=== PATIENT | female | born 1975 | race African-American/Black ===

== ENCOUNTER 2019-02-17 10:58 | Observation (INO) ==
[2019-02-17] MEDS ORDERED: SODIUM CHLORIDE 0.9% 2,000 ML IV STA (12:28)
[2019-02-17 12:34] LABS: Basophils % 0.1 % (0.0-0.8); Hematocrit 36.3 VOL% (35.7-47.0); Hemoglobin 10.8 GM/DL (12.0-16.0); Immature Granulocytes % 0.4 %; Immature Granulocytes Absolute 0.03 #; Lymphocytes # 0.8 10*3/uL (1.4-4.0); Mean Corpuscular HGB Conc 29.8 GM/DL (32-36); Mean Corpuscular Volume 77.6 FL (87-102); Mean Platelet Volume 9.9 FL (9.6-12.0); Monocytes % 1.6 % (1.7-12.7); Neutrophils % 85.9 % (38.7-73.9); Platelet Count 584 T/CUMM (130-400); Red Blood Count 4.68 MC/CUMM (3.8-5.5); Red Cell Distribution Width 14.8 % (9.3-17.3); White Blood Count 6.9 T/CUMM (4-12)
[2019-02-17 12:45] LABS: Apearance,Urine CLEAR (Clear); Bacteria,Urine Occasional /HPF (Few); Bilirubin,Urine Negative (Negative); Blood, Urine Negative (Negative); Glucose,Urine (UA) >=500 mg/dL (Negative); Ketones,Urine 80 mg/dL (Negative); Mucus,Urine Occasional /LPF (Occasional); Nitrite,Urine Negative (Negative); Protein,Urine Negative; RBC,Urine 2 /HPF (0-4); Squamous Epithelial Cell,Urine Occasional /HPF (0-10); Urine Color Straw (Yellow); Urine Specific Gravity 1.025 (1.001-1.035); Urine Urobilinogen < 2.0 EU/DL (0.2-1.0); WBC,Urine 1 /HPF (0-6)
[2019-02-17 12:46] LABS: Bilirubin,Total 0.4 MG/DL (0.2-1.0); Calcium 9.5 MG/DL (8.5-10.1); Osmolality,Calculated 284.8 MOS/KG (273-304); Total Protein 7.8 G/DL (6.4-8.3)
[2019-02-17 13:22] LABS: Barbiturates Screen,Urine Negative (Negative); Benzodiazepines Screen,Urine Negative (Negative); Cannabinoid Screen,Urine Negative (Negative); Opiate Screen,Urine Negative (Negative); Phencyclidine Screen,Urine Negative (Negative)
[2019-02-17] MEDS ORDERED: KETOROLAC 30 MG/1 ML VIAL IV STA (14:27)
[2019-02-17] MEDS ORDERED: ONDANSETRON 4 MG/2 ML VIAL ONE (15:06)
[2019-02-17] MEDS ORDERED: ONDANSETRON 4 MG/2 ML VIAL IV STA (15:20)
[2019-02-17] MEDS ORDERED: ACETAMINOPHEN 325 MG TABLET PO PRN (15:57)
[2019-02-17] MEDS ORDERED: PROMETHAZINE 25 MG TABLET PO PRN (15:57)
[2019-02-17] MEDS ORDERED: PROMETHAZINE 25 MG/1 ML VIAL IM PRN (15:57)
[2019-02-17] MEDS ORDERED: DEXTROSE 50% 25 GM/50 ML SYRINGE IV PRN (15:57)
[2019-02-17] MEDS ORDERED: diphenhydrAMINE CAP 25 MG CAPSULE PO PRN (15:57)
[2019-02-17] MEDS ORDERED: GLUCAGON 1 MG VIAL IM PRN (15:57)
[2019-02-17] MEDS ORDERED: ALUM/MAG/SIMETH/LIDO VISC 1:1 30 ML BOTTLE PO STA (16:20)
[2019-02-17] MEDS ORDERED: DEXTROSE 50% 25 GM/50 ML VIAL IV PRN (16:22)
[2019-02-17] MEDS: SODIUM CHLORIDE 0.9% 1,000 ML IV SCH ×2 (18:23→23:28)
[2019-02-17] MEDS: LISINOPRIL 10 MG TABLET PO SCH (18:25)
[2019-02-17] MEDS: PANTOPRAZOLE 40 MG TABLET PO SCH (18:25)
[2019-02-17] MEDS: ENOXAPARIN 40 MG/0.4 ML SYRINGE SUBCUT SCH (18:26)
[2019-02-17] MEDS: INSULIN REGULAR 100 UNIT/ML SUBCUT SCH ×2 (18:27→21:03)
[2019-02-17] MEDS: metFORMIN 500 MG TABLET PO SCH (21:03)
[2019-02-18] MEDS: SODIUM CHLORIDE 0.9% 1,000 ML IV SCH ×4 (04:38→23:09)
[2019-02-18 05:07] LABS: Calcium 7.6 MG/DL (8.5-10.1); Osmolality,Calculated 281.1 MOS/KG (273-304)
[2019-02-18] MEDS: INSULIN REGULAR 100 UNIT/ML SUBCUT SCH ×4 (08:04→20:36)
[2019-02-18] MEDS: PANTOPRAZOLE 40 MG TABLET PO SCH (08:43)
[2019-02-18] MEDS: LISINOPRIL 10 MG TABLET PO SCH (08:43)
[2019-02-18] MEDS: metFORMIN 500 MG TABLET PO SCH ×2 (08:43→20:28)
[2019-02-18] MEDS: ONDANSETRON 4 MG/2 ML VIAL IV PRN ×2 (09:59→16:46)
[2019-02-18] MEDS ORDERED: POTASSIUM CHLORIDE 20 MEQ TABLET PO ONE (10:04)
[2019-02-18] MEDS ORDERED: NITROGLYCERIN SL 0.4 MG TABLET SL PRN (10:11)
[2019-02-18] MEDS ORDERED: ASPIRIN CHEW 81 MG TABLET PO ONE (10:11)
[2019-02-18] MEDS ORDERED: ALUM/MAG/SIMETH/LIDO VISC 1:1 30 ML BOTTLE PO ONE (10:14)
[2019-02-18] MEDS: MORPHINE 4 MG/1 ML VIAL IV PRN ×2 (10:19→18:06)
[2019-02-18] MEDS ORDERED: CLORAZEPATE 3.75 MG TABLET PO ONE (10:24)
[2019-02-18] MEDS ORDERED: amLODIPine 5 MG TABLET PO ONE (10:24)
[2019-02-18 11:08] LABS: Alanine Aminotransferase 14 U/L (13-56); Albumin 3.3 G/DL (3.4-5.0); Alkaline Phosphatase 57 U/L (45-117); Aspartate Amino Transferase 9 U/L (0-37); Bilirubin,Total < 0.39 MG/DL (0.2-1.0); Blood Urea Nitrogen 9 MG/DL (7-18); Calcium 7.9 MG/DL (8.5-10.1); Glucose 170 MG/DL (74-106); Osmolality,Calculated 279.5 MOS/KG (273-304); Total Protein 6.9 G/DL (6.4-8.3)
[2019-02-18] MEDS: POTASSIUM CHLORIDE RIDER 100 ML IV SCH ×8 (11:23→18:58)
[2019-02-18] MEDS: INSULIN GLARGINE 100 UNIT/ML SUBCUT SCH (13:52)
[2019-02-18] MEDS: ENOXAPARIN 40 MG/0.4 ML SYRINGE SUBCUT SCH (16:42)
[2019-02-18] MEDS: sitaGLIPtin 25 MG TABLET PO SCH (20:28)
[2019-02-18] MEDS: PANTOPRAZOLE 40 MG VIAL IV SCH (20:29)
[2019-02-19 05:45] LABS: Basophils # 0.1 10*3/uL (0.0-0.2); Basophils % 0.8 % (0.0-0.8); Eosinophils % 0.6 % (0.00-10.9); Hematocrit 30.1 VOL% (35.7-47.0); Hemoglobin 9.1 GM/DL (12.0-16.0); Immature Granulocytes % 0.3 %; Immature Granulocytes Absolute 0.02 #; Lymphocytes # 3.2 10*3/uL (1.4-4.0); Lymphocytes % 44.7 % (21.3-54.2); Mean Corpuscular HGB Conc 30.2 GM/DL (32-36); Mean Corpuscular Volume 77.6 FL (87-102); Mean Platelet Volume 9.8 FL (9.6-12.0); Monocytes % 8.6 % (1.7-12.7); Platelet Count 459 T/CUMM (130-400); Red Blood Count 3.88 MC/CUMM (3.8-5.5); Red Cell Distribution Width 14.8 % (9.3-17.3); White Blood Count 7.1 T/CUMM (4-12)
[2019-02-19 06:20] LABS: Calcium 8.1 MG/DL (8.5-10.1)
[2019-02-19] MEDS ORDERED: POTASSIUM CHLORIDE INJ 100 MEQ in SODIUM CHLORIDE 0.9% 1,000 ML IV SCH (07:30)
[2019-02-19] MEDS: POTASSIUM CHLORIDE RIDER 10 MEQ in PREMIX 1 EACH IV SCH ×4 (08:00→12:21)
[2019-02-19] MEDS: LISINOPRIL 10 MG TABLET PO SCH (08:00)
[2019-02-19] MEDS: amLODIPine 5 MG TABLET PO SCH (08:00)
[2019-02-19] MEDS: PANTOPRAZOLE 40 MG VIAL IV SCH ×2 (08:00→21:35)
[2019-02-19] MEDS: INSULIN REGULAR 100 UNIT/ML SUBCUT SCH ×4 (08:05→21:37)
[2019-02-19] MEDS: metFORMIN 500 MG TABLET PO SCH ×2 (08:06→21:37)
[2019-02-19] MEDS: INSULIN GLARGINE 100 UNIT/ML SUBCUT SCH (08:06)
[2019-02-19] MEDS: SODIUM CHLORIDE 0.9% 1,000 ML IV SCH ×2 (08:06→16:29)
[2019-02-19] MEDS ORDERED: PROPOFOL 200 MG/20 ML VIAL IV ONE (10:00)
[2019-02-19] MEDS ORDERED: LIDOCAINE 100 MG/5 ML SYRINGE ONE (10:00)
[2019-02-19 11:22] LABS: Osmolality,Calculated 279.3 MOS/KG (273-304)
[2019-02-19] MEDS: ENOXAPARIN 40 MG/0.4 ML SYRINGE SUBCUT SCH (17:36)
[2019-02-19] MEDS: sitaGLIPtin 25 MG TABLET PO SCH (21:37)
[2019-02-20] MEDS: SODIUM CHLORIDE 0.9% 1,000 ML IV SCH ×2 (01:35→08:34)
[2019-02-20] MEDS: INSULIN REGULAR 100 UNIT/ML SUBCUT SCH ×4 (07:30→21:29)
[2019-02-20] MEDS: LISINOPRIL 10 MG TABLET PO SCH (08:45)
[2019-02-20] MEDS: PANTOPRAZOLE 40 MG VIAL IV SCH (08:45)
[2019-02-20] MEDS: amLODIPine 5 MG TABLET PO SCH (08:45)
[2019-02-20] MEDS: metFORMIN 500 MG TABLET PO SCH ×2 (10:13→21:30)
[2019-02-20] MEDS: INSULIN GLARGINE 100 UNIT/ML SUBCUT SCH (10:13)
[2019-02-20] MEDS: METOCLOPRAMIDE 10 MG/10 ML UDCUP PO SCH ×3 (11:02→21:30)
[2019-02-20] MEDS: ENOXAPARIN 40 MG/0.4 ML SYRINGE SUBCUT SCH (15:53)
[2019-02-20] MEDS: PANTOPRAZOLE 40 MG TABLET PO SCH (18:24)
[2019-02-20] MEDS: sitaGLIPtin 25 MG TABLET PO SCH (21:29)
[2019-02-21] MEDS: SODIUM CHLORIDE 0.9% 1,000 ML IV SCH ×2 (00:33→09:55)
[2019-02-21 03:54] LABS: Basophils % 0.4 % (0.0-0.8); Eosinophils # 0.1 10*3/uL (0.0-0.87); Eosinophils % 1.4 % (0.00-10.9); Hemoglobin 8.8 GM/DL (12.0-16.0); Lymphocytes # 1.8 10*3/uL (1.4-4.0); Mean Corpuscular HGB Conc 30.3 GM/DL (32-36); Mean Corpuscular Volume 77.7 FL (87-102); Mean Platelet Volume 10.1 FL (9.6-12.0); Monocytes % 9.1 % (1.7-12.7); Neutrophils % 53.1 % (38.7-73.9); Platelet Count 398 T/CUMM (130-400); Red Blood Count 3.73 MC/CUMM (3.8-5.5); Red Cell Distribution Width 15.1 % (9.3-17.3)
[2019-02-21 04:07] LABS: Calcium 7.9 MG/DL (8.5-10.1); Osmolality,Calculated 276.4 MOS/KG (273-304)
[2019-02-21] MEDS: PANTOPRAZOLE 40 MG TABLET PO SCH (06:13)
[2019-02-21] MEDS: INSULIN REGULAR 100 UNIT/ML SUBCUT SCH ×3 (07:39→16:44)
[2019-02-21] MEDS: POTASSIUM CHLORIDE RIDER 10 MEQ in PREMIX 1 EACH IV SCH ×8 (09:02→15:10)
[2019-02-21] MEDS: METOCLOPRAMIDE 10 MG/10 ML UDCUP PO SCH ×3 (09:04→16:44)
[2019-02-21] MEDS: LISINOPRIL 10 MG TABLET PO SCH (09:05)
[2019-02-21] MEDS: metFORMIN 500 MG TABLET PO SCH (09:05)
[2019-02-21] MEDS: amLODIPine 5 MG TABLET PO SCH (09:05)
[2019-02-21 11:50] VITALS: BP 127/76
[2019-02-21] MEDS ORDERED: POTASSIUM CHLORIDE RIDER 10 MEQ in PREMIX 1 EACH IV SCH (14:50)
[2019-02-21] MEDS: ENOXAPARIN 40 MG/0.4 ML SYRINGE SUBCUT SCH (16:44)
== END 2019-02-21 17:40 | disposition home or self-care (01) ==
LOC: N.ED 10:58 → N.EDINP 10:58 → SUATTDRO 15:57 → N.5E 17:35
PROVIDERS: ADMIT Internal Medicine; ATTEND Internal Medicine